=== PATIENT | female | born 1990 | race African-American/Black ===

== ENCOUNTER 2017-09-16 21:22 | Emergency (ER) | payer OTHER ==
[~2017-09-16] VITALS: Ht 167.6 cm; Wt 89.8 kg
[2017-09-16] MEDS ORDERED: ACYCLOVIR 400400 MG (21:31)
[2017-09-16] MEDS ORDERED: BUSPIRONE HCL10 MG (21:31)
[2017-09-16 21:59] LABS: URINE BILIRUBIN NEGATIVE (Negative); URINE BLOOD NEGATIVE (Negative); URINE CLARITY CLEAR; URINE COLOR STRAW; URINE GLUCOSE-RANDOM NEGATIVE (Negative); URINE KETONES NEGATIVE (Negative); URINE LEUKOCYTES NEGATIVE (Negative); URINE NITRITE NEGATIVE (Negative); URINE PROTEIN NEGATIVE (Negative); URINE UROBILINOGEN 0.2 E.U./dl (0.2-1.0)
[2017-09-16 22:10] LABS: ABSOLUTE BASOPHILS 0.2 thou/uL (0.0-0.2); ABSOLUTE EOSINOPHILS 0.2 thou/uL (0.0-0.7); ABSOLUTE LYMPHOCYTES 4.9 thou/uL (0.8-5.3); ABSOLUTE MONOCYTES 0.8 thou/uL (0.0-1.2); ABSOLUTE NEUTROPHILS 6.8 thou/uL (1.6-8.1); BASOPHILS 1.4 %; EOSINOPHILS 1.5 %; HEMATOCRIT 38.1 % (37.0-47.0); HEMOGLOBIN 13.1 gm/dL (12.0-15.0); LYMPHOCYTES 38.3 %; MCH 26.4 pg (26.0-34.0); MCHC 34.4 g/dL (28.0-37.0); MCV 76.8 fL (80.0-100.0); MPV 8.2 fl. (7.2-11.1); NUCLEATED RBCS 0 /100WBC; PLATELET COUNT* 320 thou/uL (150-400); POLYS 52.8 %; RBC 4.97 mil/uL (4.20-5.00); RDW-CV 14.6 % (10.5-14.5); WBC 12.8 thou/uL (4.0-11.0)
[2017-09-16 22:19] LABS: ANION GAP 5 mmol/L (7-16); BUN 9 mg/dL (7-18); CHLORIDE 101 mmol/L (98-107); CO2 29 mmol/L (21-32); CREATININE 0.8 mg/dL (0.6-1.3); GLUCOSE 93 mg/dL (70-99); POTASSIUM 3.6 mmol/L (3.5-5.1); SODIUM 135 mmol/L (136-145)
[2017-09-16 22:21] LABS: APTT 27.9 Seconds (25.0-31.3); PROTIME 9.9 Seconds (9.20-11.50)
[2017-09-16 22:30] LABS: ALBUMIN 3.7 g/dL (3.4-5.0); ALKALINE PHOSPHATASE 79 U/L (46-116); NT-PRO BRAIN NAT PEPTIDE 6 pg/mL (<300); SGOT 42 U/L (15-37); SGPT 59 U/L (30-65); TOTAL BILIRUBIN 0.3 mg/dL (<0.1-1.0); TROPONIN-I LEVEL <0.06 ng/mL (<0.06)
[2017-09-16] MEDS ORDERED: LISINOPRIL2.5 MG PO (23:12)
[2017-09-17 00:22] VITALS: BP 138/83
--- NOTE | 2017-09-17 11:14 | EKG ---
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1990 Requested By: Keith Godoy Order Number: [id number] MD: Charli Horn Measurements Intervals [place] Rate: 117 P: 67 [place]: 167 QRS: 62 QRSD: 76 T: -7 QT: 325 QTc: 454 Interpretive Statements Sinus tachycardia Borderline T abnormalities, inferior leads No previous ECG available for comparison Electronically Signed On 09-17-2017 11:13:59 CDT by Charli Horn [email or web address] <ELECTRONICALLY SIGNED> By: Dilip Horn MD, [facility] 09/17/17 1113 2150 2150 Dilip Horn MD, FACC /EPI
== END 2017-09-17 00:22 | disposition home or self-care (01) ==
LOC: M.ERS 21:22
PROVIDERS: Physician Assistant
DX: I10 Essential (primary) hypertension (principal); F41.9 Anxiety disorder, unspecified; Z90.49 Acquired absence of other specified parts of digestive tract; N89.8 Other specified noninflammatory disorders of vagina; R30.0 Dysuria; R42 Dizziness and giddiness

== ENCOUNTER 2018-03-10 07:59 | Emergency (ER) | payer OTHER ==
[~2018-03-10] VITALS: Ht 167.6 cm; Wt 86.2 kg
[~2018-03-10 07:59] MED LIST: ACYCLOVIR 400400 MG; BUSPIRONE HCL10 MG; LISINOPRIL2.5 MG PO
[2018-03-10 08:13] VITALS: BP 146/100
[2018-03-10] MEDS ORDERED: PRINIVIL5 MG PO (08:16)
[2018-03-10] MEDS ORDERED: FLAGYL500 M1 PO (08:19)
[2018-03-10] MEDS ORDERED: DIFLUCAN150 MG PO (08:19)
[2018-03-10 08:28] LABS: URINE BILIRUBIN NEGATIVE (Negative); URINE BLOOD NEGATIVE (Negative); URINE CLARITY CLEAR; URINE COLOR YELLOW; URINE GLUCOSE-RANDOM NEGATIVE (Negative); URINE KETONES NEGATIVE (Negative); URINE LEUKOCYTES-REFLEX NEGATIVE (Negative); URINE NITRITE-REFLEX NEGATIVE (Negative); URINE PROTEIN NEGATIVE (Negative); URINE SPECIFIC GRAVITY >= 1.030 (1.005-1.030); URINE UROBILINOGEN 0.2 E.U./dl (0.2-1.0)
== END 2018-03-10 08:32 | disposition home or self-care (01) ==
LOC: M.ERS 07:59
PROVIDERS: Family Medicine
DX: N89.8 Other specified noninflammatory disorders of vagina (principal); F41.9 Anxiety disorder, unspecified; Z90.49 Acquired absence of other specified parts of digestive tract

== ENCOUNTER 2018-05-22 15:43 | Emergency (ER) | payer OTHER ==
[~2018-05-22] VITALS: Ht 167.6 cm; Wt 86.2 kg
[~2018-05-22 15:43] MED LIST changes: +DIFLUCAN150 MG PO; +FLAGYL500 M1 PO; +PRINIVIL5 MG PO
[2018-05-22] MEDS ORDERED: CELEXA20 MG PO (16:11)
[2018-05-22] MEDS ORDERED: PRENATAL PO (16:12)
[2018-05-22 16:37] LABS: URINE BILIRUBIN NEGATIVE (Negative); URINE BLOOD NEGATIVE (Negative); URINE CLARITY CLEAR; URINE COLOR YELLOW; URINE GLUCOSE-RANDOM NEGATIVE (Negative); URINE KETONES TRACE (Negative); URINE LEUKOCYTES-REFLEX NEGATIVE (Negative); URINE NITRITE-REFLEX NEGATIVE (Negative); URINE PROTEIN NEGATIVE (Negative)
[2018-05-22] MEDS ORDERED: TRINATE TABLET1 EACH PO (16:48)
[2018-05-22 17:12] VITALS: BP 141/90
== END 2018-05-22 17:12 | disposition home or self-care (01) ==
LOC: M.ERS 15:43
PROVIDERS: Nurse Practitioner Family
DX: O26.891 Other specified pregnancy related conditions, first trimester (principal); N89.8 Other specified noninflammatory disorders of vagina; O99.341 Other mental disorders complicating pregnancy, first trimester; Z3A.01 Less than 8 weeks gestation of pregnancy

== ENCOUNTER 2018-09-30 19:58 | Emergency (ER) | payer OTHER ==
[~2018-09-30] VITALS: Ht 167.6 cm; Wt 89.4 kg
[~2018-09-30 19:58] MED LIST changes: +CELEXA20 MG PO; +PRENATAL PO; +TRINATE TABLET1 EACH PO
[2018-09-30] MEDS ORDERED: LISINOPRIL5 MG PO (20:10)
[2018-09-30] MEDS ORDERED: BUSPIRONE HCL10 MG PO (20:10)
[2018-09-30 21:32] VITALS: BP 160/95
[2018-09-30 21:32] LABS: URINE BILIRUBIN NEGATIVE (Negative); URINE BLOOD NEGATIVE (Negative); URINE CLARITY CLEAR; URINE COLOR YELLOW; URINE GLUCOSE-RANDOM NEGATIVE (Negative); URINE KETONES NEGATIVE (Negative); URINE LEUKOCYTES-REFLEX NEGATIVE (Negative); URINE NITRITE-REFLEX NEGATIVE (Negative); URINE PROTEIN NEGATIVE (Negative); URINE SPECIFIC GRAVITY 1.025 (1.005-1.030); URINE UROBILINOGEN 0.2 E.U./dl (0.2-1.0)
[2018-09-30] MEDS ORDERED: FLAGYL500 M1 PO (21:37)
== END 2018-09-30 21:33 | disposition home or self-care (01) ==
LOC: M.ERS 19:58
PROVIDERS: Physician Assistant
DX: Z20.2 Contact with and (suspected) exposure to infections with a predominantly sexual mode of transmission (principal); R10.30 Lower abdominal pain, unspecified; B37.9 Candidiasis, unspecified; F41.9 Anxiety disorder, unspecified; Z90.89 Acquired absence of other organs

== ENCOUNTER 2018-10-11 16:11 | Emergency (ER) | payer OTHER ==
[~2018-10-11] VITALS: Ht 167.6 cm; Wt 86.2 kg
[~2018-10-11 16:11] MED LIST changes: +BUSPIRONE HCL10 MG PO; +LISINOPRIL5 MG PO
[2018-10-11 16:37] LABS: URINE BILIRUBIN NEGATIVE (Negative); URINE BLOOD NEGATIVE (Negative); URINE CLARITY CLEAR; URINE COLOR YELLOW; URINE GLUCOSE-RANDOM NEGATIVE (Negative); URINE KETONES NEGATIVE (Negative); URINE LEUKOCYTES-REFLEX NEGATIVE (Negative); URINE NITRITE-REFLEX NEGATIVE (Negative); URINE PROTEIN NEGATIVE (Negative); URINE SPECIFIC GRAVITY >= 1.030 (1.005-1.030); URINE UROBILINOGEN 0.2 E.U./dl (0.2-1.0)
[2018-10-11 17:05] VITALS: BP 135/95
== END 2018-10-11 17:05 | disposition home or self-care (01) ==
LOC: M.ERS 16:11
PROVIDERS: Nurse Practitioner Psychiatric/Mental Health
DX: Z72.51 High risk heterosexual behavior (principal); Z20.2 Contact with and (suspected) exposure to infections with a predominantly sexual mode of transmission; R03.0 Elevated blood-pressure reading, without diagnosis of hypertension; F41.9 Anxiety disorder, unspecified; Z90.49 Acquired absence of other specified parts of digestive tract

== ENCOUNTER 2018-11-23 21:14 | Emergency (ER) | payer OTHER ==
[~2018-11-23] VITALS: Ht 167.6 cm; Wt 85.7 kg
[2018-11-23] MEDS ORDERED: LISINOPRIL2.5 MG PO (21:23)
[2018-11-23 22:04] LABS: ABSOLUTE BASOPHILS 0.1 thou/uL (0.0-0.2); ABSOLUTE EOSINOPHILS 0.1 thou/uL (0.0-0.7); ABSOLUTE LYMPHOCYTES 1.9 thou/uL (0.8-5.3); ABSOLUTE MONOCYTES 0.8 thou/uL (0.0-1.2); ABSOLUTE NEUTROPHILS 8.3 thou/uL (1.6-8.1); BASOPHILS 0.6 %; EOSINOPHILS 1.1 %; HEMATOCRIT 36.7 % (37.0-47.0); LYMPHOCYTES 17.3 %; MCH 27.1 pg (26.0-34.0); MCHC 35.3 g/dL (28.0-37.0); MCV 76.8 fL (80.0-100.0); MONOCYTES 7.1 %; MPV 8.1 fl. (7.2-11.1); NUCLEATED RBCS 0 /100WBC; PLATELET COUNT* 286 thou/uL (150-400); POLYS 73.9 %; RBC 4.78 mil/uL (4.20-5.00); RDW-CV 14.7 % (10.5-14.5); WBC 11.2 thou/uL (4.0-11.0)
[2018-11-23 22:06] LABS: URINE BILIRUBIN NEGATIVE (Negative); URINE BLOOD NEGATIVE (Negative); URINE CLARITY CLEAR; URINE COLOR YELLOW; URINE GLUCOSE-RANDOM NEGATIVE (Negative); URINE KETONES TRACE (Negative); URINE LEUKOCYTES-REFLEX NEGATIVE (Negative); URINE NITRITE-REFLEX NEGATIVE (Negative); URINE PROTEIN TRACE (Negative); URINE SPECIFIC GRAVITY 1.025 (1.005-1.030); URINE UROBILINOGEN 0.2 E.U./dl (0.2-1.0)
[2018-11-23 22:16] LABS: CREATININE 0.8 mg/dL (0.6-1.3); POTASSIUM 3.2 mmol/L (3.5-5.1)
[2018-11-23 22:20] LABS: TOTAL BILIRUBIN 0.5 mg/dL (<0.1-1.0); TOTAL PROTEIN 7.5 g/dL (6.4-8.2)
[2018-11-23] MEDS ORDERED: NORCO 5-325 TA1 EAC1 PO (23:25)
[2018-11-23] MEDS ORDERED: AUGMENTIN 875-1 EACH PO (23:25)
[2018-11-23] MEDS ORDERED: ZOFRAN ODT4 MG DISSOLVE (23:25)
[2018-11-23 23:41] VITALS: BP 141/85
--- NOTE | 2018-11-25 14:20 | EKG ---
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
== END 2018-11-23 23:45 | disposition home or self-care (01) ==
LOC: M.ERS 21:14
PROVIDERS: Emergency Medicine Emergency Medical Services
DX: R10.10 Upper abdominal pain, unspecified (principal); F41.9 Anxiety disorder, unspecified; Z90.49 Acquired absence of other specified parts of digestive tract

== ENCOUNTER 2019-01-30 18:30 | Emergency (ER) | payer OTHER ==
[~2019-01-30] VITALS: Ht 167.6 cm; Wt 81.7 kg
[~2019-01-30 18:30] MED LIST changes: +AUGMENTIN 875-1 EACH PO; +NORCO 5-325 TA1 EAC1 PO; +ZOFRAN ODT4 MG DISSOLVE
[2019-01-30] MEDS ORDERED: BUSPIRONE HCL5 MG PO (19:18)
[2019-01-30] MEDS ORDERED: CELEXA 20 MG TA20 MG PO (19:18)
[2019-01-30 19:44] LABS: URINE BILIRUBIN NEGATIVE (Negative); URINE BLOOD NEGATIVE (Negative); URINE CLARITY CLEAR; URINE COLOR YELLOW; URINE GLUCOSE-RANDOM NEGATIVE (Negative); URINE KETONES 1+ (Negative); URINE LEUKOCYTES-REFLEX NEGATIVE (Negative); URINE NITRITE-REFLEX NEGATIVE (Negative); URINE PROTEIN NEGATIVE (Negative); URINE UROBILINOGEN 0.2 E.U./dl (0.2-1.0)
[2019-01-30 19:56] LABS: INFLUENZA A ANTIGEN Negative (Negative); INFLUENZA B ANTIGEN Negative (Negative)
[2019-01-30] MEDS ORDERED: LOPRESSOR50 MG PO (20:10)
[2019-01-30 20:18] VITALS: BP 148/93
== END 2019-01-30 20:19 | disposition home or self-care (01) ==
LOC: M.ERS 18:30
PROVIDERS: Emergency Medicine
DX: I10 Essential (primary) hypertension (principal); F41.9 Anxiety disorder, unspecified; Z90.49 Acquired absence of other specified parts of digestive tract

== ENCOUNTER 2020-05-28 19:24 | Emergency (ER) | payer OTHER ==
[~2020-05-28] VITALS: Ht 167.6 cm; Wt 86.2 kg
[~2020-05-28 19:24] MED LIST changes: +BUSPIRONE HCL5 MG PO; +CELEXA 20 MG TA20 MG PO; +LOPRESSOR50 MG PO
[2020-05-28 21:16] LABS: URINE BILIRUBIN NEGATIVE (Negative); URINE BLOOD NEGATIVE (Negative); URINE CLARITY CLEAR; URINE COLOR YELLOW; URINE GLUCOSE-RANDOM NEGATIVE (Negative); URINE KETONES NEGATIVE (Negative); URINE LEUKOCYTES-REFLEX NEGATIVE (Negative); URINE NITRITE-REFLEX NEGATIVE (Negative); URINE PROTEIN NEGATIVE (Negative); URINE UROBILINOGEN 0.2 E.U./dl (0.2-1.0)
[2020-05-28] MEDS ORDERED: FLAGYL500 M1 PO ×2 (21:29)
[2020-05-28 21:53] VITALS: BP 148/88
== END 2020-05-28 21:53 | disposition home or self-care (01) ==
LOC: M.ERS 19:24
PROVIDERS: Physician Assistant
DX: A59.9 Trichomoniasis, unspecified (principal); I10 Essential (primary) hypertension; F41.9 Anxiety disorder, unspecified; Z90.49 Acquired absence of other specified parts of digestive tract; Z98.890 Other specified postprocedural states

== ENCOUNTER 2021-02-06 03:08 | Emergency (ER) | payer OTHER ==
[~2021-02-06] VITALS: Ht 167.6 cm; Wt 86.2 kg
[2021-02-06] MEDS ORDERED: LISINOPRIL-HCT1 EACH PO (04:07)
[2021-02-06 04:30] LABS: INFLUENZA A ANTIGEN Negative (Negative); INFLUENZA B ANTIGEN Negative (Negative)
[2021-02-06 05:05] VITALS: BP 132/85
--- NOTE | 2021-02-06 11:14 | EKG ---
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 : 1990 Requested By: Zainab Nixon Order Number: [id number] MD: Rashawn Garrett Measurements Intervals [place] Rate: 136 P: 71 [place]: 139 QRS: 64 QRSD: 73 T: -16 QT: 290 QTc: 437 Interpretive Statements Sinus tachycardia Borderline repolarization abnormality Compared to ECG 11/23/2018 21:43:38 rate has increased Electronically Signed On 02-06-2021 11:14:31 HOME OFFICE REPRESENTATIVE by Rashawn Garrett [email or web address] <ELECTRONICALLY SIGNED> By: Rashawn Garrett MD, FACDouglas 02/06/21 1114 0320 0320 Rashawn Garrett MD, [facility] /EPI
== END 2021-02-06 05:05 | disposition home or self-care (01) ==
LOC: M.ERS 03:08
PROVIDERS: Personal Emergency Response Attendant
DX: I16.0 Hypertensive urgency (principal); Z20.822 Contact with and (suspected) exposure to COVID-19; F41.9 Anxiety disorder, unspecified; Z90.49 Acquired absence of other specified parts of digestive tract

== ENCOUNTER 2021-02-23 13:17 | Emergency (ER) | payer OTHER ==
[~2021-02-23] VITALS: Ht 167.6 cm; Wt 86.2 kg
[~2021-02-23 13:17] MED LIST changes: +LISINOPRIL-HCT1 EACH PO
[2021-02-23 17:07] LABS: URINE BLOOD 3+ (Negative); URINE CLARITY CLEAR; URINE COLOR YELLOW; URINE GLUCOSE-RANDOM NEGATIVE (Negative); URINE LEUKOCYTES NEGATIVE (Negative); URINE NITRITE NEGATIVE (Negative); URINE PROTEIN NEGATIVE (Negative); URINE SPECIFIC GRAVITY >= 1.030 (1.005-1.030); URINE UROBILINOGEN 0.2 E.U./dl (0.2-1.0)
[2021-02-23 17:09] LABS: URINE BILIRUBIN 1+ (Negative); URINE KETONES 3+ (Negative)
[2021-02-23 17:10] LABS: ICTOTEST (BILI CONFIRMATORY) Negative (Negative)
[2021-02-23 17:15] LABS: SQUAMOUS >10 Many /LPF (0-3)
[2021-02-23 17:16] LABS: BACTERIA 1-9 Few /HPF (None Seen); HYALINE CASTS 0-3 Few /LPF (None Seen); MUCUS 4-6 Moderate strn/LPF (None Seen)
[2021-02-23 17:17] LABS: URINE WBC 0-5 Rare /HPF (0-5)
[2021-02-23 17:19] LABS: CRYSTALS None Seen /LPF (None Seen); URINE RBC 0-2 Rare /HPF (0-2)
[2021-02-23 17:25] LABS: ABSOLUTE BASOPHILS 0.1 thou/uL (0.0-0.2); ABSOLUTE MONOCYTES 0.6 thou/uL (0.0-1.2); ABSOLUTE NEUTROPHILS 5.9 thou/uL (1.6-8.1); BASOPHILS 1.1 %; EOSINOPHILS 0.5 %; HEMATOCRIT 44.2 % (37.0-47.0); HEMOGLOBIN 15.3 gm/dL (12.0-15.0); LYMPHOCYTES 31.5 %; MCH 26.5 pg (26.0-34.0); MCHC 34.7 g/dL (28.0-37.0); MCV 76.5 fL (80.0-100.0); MONOCYTES 5.9 %; MPV 8.2 fl. (7.2-11.1); NUCLEATED RBCS 0 /100WBC; PLATELET COUNT* 438 thou/uL (150-400); RBC 5.77 mil/uL (4.20-5.00); WBC 9.6 thou/uL (4.0-11.0)
[2021-02-23 17:40] LABS: ANION GAP 15 mmol/L (7-16); BUN 18 mg/dL (7-18); CALCIUM 9.4 mg/dL (8.5-10.1); CHLORIDE 96 mmol/L (98-107); CO2 22 mmol/L (21-32); GLUCOSE 87 mg/dL (70-99); POTASSIUM 3.3 mmol/L (3.5-5.1); SODIUM 133 mmol/L (136-145)
[2021-02-23 17:51] LABS: ALBUMIN 4.6 g/dL (3.4-5.0); ALKALINE PHOSPHATASE 79 U/L (46-116); NT-PRO BRAIN NAT PEPTIDE < 5 pg/mL (<300); SGOT 19 U/L (15-37); SGPT 40 U/L (30-65); TOTAL BILIRUBIN 0.6 mg/dL (<0.1-1.0); TOTAL PROTEIN 9.5 g/dL (6.4-8.2)
[2021-02-23] MEDS ORDERED: KAPSPARGO SPRIN25 MG PO (19:12)
[2021-02-23 19:43] VITALS: BP 143/83
--- NOTE | 2021-02-24 09:58 | EKG ---
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1990 Requested By: Yoni Dunaway Order Number: [id number] MD: Keith Galaviz Measurements Intervals [place] Rate: 115 P: 82 CT: 120 QRS: 77 QRSD: 85 T: -31 QT: 318 QTc: 440 Interpretive Statements Sinus tachycardia Repol abnrm suggests ischemia, inferior leads Compared to ECG 02/06/2021 03:20:36 Possible ischemia now present Electronically Signed On 02-24-2021 9:57:57 MATERIAL CREW SUPERVISOR by Keith Galaviz [email or web address] <ELECTRONICALLY SIGNED> By: Keith Galaviz MD, [facility] 02/24/21 0957 1332 1332 Keith Galaviz MD, [facility] /EPI
== END 2021-02-23 19:43 | disposition home or self-care (01) ==
LOC: M.ERS 13:17
PROVIDERS: Physician Assistant
DX: R00.0 Tachycardia, unspecified (principal); R55 Syncope and collapse; I10 Essential (primary) hypertension; F41.9 Anxiety disorder, unspecified; Z90.49 Acquired absence of other specified parts of digestive tract; Z79.899 Other long term (current) drug therapy

== ENCOUNTER 2021-03-11 19:32 | Emergency (ER) | payer OTHER ==
[~2021-03-11] VITALS: Ht 167.6 cm; Wt 99.8 kg
[~2021-03-11 19:32] MED LIST changes: +KAPSPARGO SPRIN25 MG PO
[2021-03-11 20:46] LABS: ABSOLUTE BASOPHILS 0.1 thou/uL (0.0-0.2); ABSOLUTE EOSINOPHILS 0.1 thou/uL (0.0-0.7); ABSOLUTE LYMPHOCYTES 1.8 thou/uL (0.8-5.3); ABSOLUTE MONOCYTES 0.6 thou/uL (0.0-1.2); ABSOLUTE NEUTROPHILS 6.2 thou/uL (1.6-8.1); BASOPHILS 0.6 %; EOSINOPHILS 0.7 %; HEMATOCRIT 36.1 % (37.0-47.0); HEMOGLOBIN 12.7 gm/dL (12.0-15.0); MCH 26.8 pg (26.0-34.0); MCHC 35.1 g/dL (28.0-37.0); MCV 76.4 fL (80.0-100.0); MONOCYTES 7.3 %; MPV 8.1 fl. (7.2-11.1); NUCLEATED RBCS 0 /100WBC; PLATELET COUNT* 299 thou/uL (150-400); POLYS 70.4 %; RBC 4.72 mil/uL (4.20-5.00); RDW-CV 14.1 % (10.5-14.5); WBC 8.7 thou/uL (4.0-11.0)
[2021-03-11 20:47] LABS: URINE BILIRUBIN NEGATIVE (Negative); URINE BLOOD NEGATIVE (Negative); URINE CLARITY CLEAR; URINE COLOR YELLOW; URINE GLUCOSE-RANDOM NEGATIVE (Negative); URINE KETONES TRACE (Negative); URINE LEUKOCYTES-REFLEX NEGATIVE (Negative); URINE NITRITE-REFLEX NEGATIVE (Negative); URINE PROTEIN 1+ (Negative); URINE SPECIFIC GRAVITY 1.025 (1.005-1.030); URINE UROBILINOGEN 0.2 E.U./dl (0.2-1.0)
[2021-03-11 20:55] LABS: AMP/METHAMP Negative (Negative); BARBITURATES Negative (Negative); BENZODIAZEPINES Negative (Negative); COCAINE Negative (Negative); METHADONE Negative (Negative); OPIATES Negative (Negative); PCP Negative (Negative); THC Negative (Negative)
[2021-03-11 21:00] LABS: CALCIUM 9.2 mg/dL (8.5-10.1); CREATININE 0.8 mg/dL (0.6-1.3); POTASSIUM 3.3 mmol/L (3.5-5.1)
[2021-03-11 21:05] LABS: ALBUMIN 4.1 g/dL (3.4-5.0); MAGNESIUM 1.8 mg/dL (1.8-2.4); TOTAL BILIRUBIN 0.3 mg/dL (<0.1-1.0); TOTAL PROTEIN 8.2 g/dL (6.4-8.2)
[2021-03-11 22:02] VITALS: BP 120/99
--- NOTE | 2021-03-12 09:13 | EKG ---
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: : 1990 Requested By: Usha Lange Order Number: [id number] MD: Agustin Ladd Measurements Intervals [place] Rate: 119 P: 64 DC: 132 QRS: 75 QRSD: 76 T: 0 QT: 313 QTc: 441 Interpretive Statements Sinus tachycardia Borderline repolarization abnormality Compared to ECG 02/23/2021 13:32:23 Possible ischemia no longer present Electronically Signed On 03-12-2021 9:13:29 DIAMOND WHEEL EDGER by Agustin Ladd [email or web address] <ELECTRONICALLY SIGNED> By: Agustin Ladd MD, FACC 03/12/21 0913 34 34 Agustin Ladd MD, [facility] /EPI
== END 2021-03-11 22:02 | disposition home or self-care (01) ==
LOC: M.ERS 19:32
PROVIDERS: Emergency Medicine
DX: R00.0 Tachycardia, unspecified (principal); I10 Essential (primary) hypertension; F41.9 Anxiety disorder, unspecified; Z90.89 Acquired absence of other organs; Z79.899 Other long term (current) drug therapy